=== PATIENT | female | born 1955 | race African-American/Black ===

== ENCOUNTER 2023-05-10 11:49 | Inpatient (IN) | payer MEDICARE, MEDICAID ==
[2023-05-10] MEDS ORDERED: SODIUM CHLORIDE 0.9% 1000ML 1,000 ML IV ONE (12:30)
[2023-05-10 13:10] LABS: BASOPHILS % 0.2 % (0.0-1.0); EOSINOPHILS % 0.4 % (0.0-6.0); HEMATOCRIT 26.6 % (34.2-44.1); HEMOGLOBIN 8.5 g/dL (12.0-16.0); LYMPHOCYTES # (AUTO) 1.8 (1.0-3.2); LYMPHOCYTES % 21.8 % (18.0-39.1); MEAN CORPUSCULAR HEMOGLOBIN 28.3 pg (28-32); MEAN CORPUSCULAR VOLUME 88.7 fL (81-99); MONOCYTES # (AUTO) 0.5 (0.2-0.8); MONOCYTES % 5.6 % (4.4-11.3); NEUTROPHILS % 71.3 % (38.7-80.0); PLATELET COUNT 312 x10e3/uL (140-360); RED CELL DISTRIBUTION WIDTH 16.2 % (11.7-14.4); WHITE BLOOD COUNT 8.43 x10e3/uL (4.8-10.8)
[2023-05-10 13:14] LABS: CLARITY,URINE CLOUDY (CLEAR); COLOR,URINE YELLOW (YELLOW); LEUKOCYTE ESTERASE ,URINE LARGE (NEGATIVE); NITRITE,URINE NEGATIVE (NEGATIVE); PH,URINE 8.5 (5 - 7); PROTEIN,URINE DIPSTICK 2+ (NEGATIVE)
[2023-05-10 13:15] LABS: BILIRUBIN,URINE NEGATIVE (NEGATIVE); GLUCOSE, URINE 1+ (NEGATIVE); KETONES,URINE NEGATIVE (NEGATIVE); URINE UROBILINOGEN 1 mg/dL (0.2 - 1)
[2023-05-10 13:29] LABS: BACTERIA,URINE MODERATE /HPF; RBC,URINE >50 /HPF (0-5); WBC,URINE (MAN) >50 /HPF (0-5)
[2023-05-10 13:30] LABS: YEAST,URINE MANY
[2023-05-10 13:35] LABS: ALBUMIN 1.2 g/dL (3.5-5.0); ALBUMIN/GLOBULIN RATIO 0.2 (0.8-2.0); ANION GAP 12.5 mmol/L (8-16); BILIRUBIN,TOTAL 0.4 mg/dL (0.2-1.2); CALCIUM 7.2 mg/dL (8.4-10.2); CREATININE, SERUM 0.64 mg/dL (0.57-1.11); POTASSIUM 4.5 mmol/L (3.5-5.1); TOTAL PROTEIN 6.1 g/dL (6.5-8.1)
[2023-05-10] MEDS ORDERED: ONDANSETRON HCL INJ 2MG/ML 2ML 2 MG/ML VIAL IV PRN (14:30)
[2023-05-10 15:24] LABS: BILIRUBIN,URINE NEGATIVE (NEGATIVE); CLARITY,URINE CLOUDY (CLEAR); COLOR,URINE YELLOW (YELLOW); GLUCOSE, URINE 1+ (NEGATIVE); KETONES,URINE NEGATIVE (NEGATIVE); LEUKOCYTE ESTERASE ,URINE 1+ (NEGATIVE); NITRITE,URINE NEGATIVE (NEGATIVE); PH,URINE 7 (5 - 7); PROTEIN,URINE DIPSTICK 1+ (NEGATIVE); URINE UROBILINOGEN 1 mg/dL (0.2 - 1)
[2023-05-10 15:41] LABS: BACTERIA,URINE MANY /HPF; EPITHELIAL CELLS,URINE MANY /LPF; RBC,URINE 21-50 /HPF (0-5); WBC,URINE (MAN) 21-50 /HPF (0-5)
[2023-05-10] MEDS: SODIUM CHLORIDE 0.9% 1000ML 1,000 ML IV SCH (15:41)
[2023-05-10 22:31] VITALS: BP 121/87; PULSE 97; RESP 20; TEMP 99.1; O2SAT 98
[2023-05-10 22:34] VITALS: BP 121/87; PULSE 97; RESP 19; TEMP 99.1; O2SAT 100
[2023-05-10 23:58] VITALS: BP 121/87; PULSE 97; RESP 20; TEMP 99.1
[2023-05-11] VITALS (13 sets, daily range): BP systolic 121–151; BP diastolic 68–87; PULSE 90–101; RESP 18–22; TEMP 96–99.7; O2SAT 95–100
[2023-05-11] MEDS: SODIUM CHLORIDE 0.9% 1000ML 1,000 ML IV SCH ×2 (00:44→06:17)
[2023-05-11 02:20] LABS: % IRON SATURATION 15 % (15-50); IRON 22 ug/dL (50-170); TOTAL IRON BINDING CAPACITY 144 ug/dL (261-478); TRANSFERRIN 103 mg/dL (180-382)
[2023-05-11 03:09] LABS: FOLATE 15.7 ng/mL (7.0-15.4)
[2023-05-11] MEDS ORDERED: BENZONATATE 100 MG CAP PO PRN (07:00)
[2023-05-11] MEDS ORDERED: METOPROLOL TARTRATE INJ 1 MG/ML VIAL IV PRN (07:00)
[2023-05-11] MEDS ORDERED: ALBUTEROL/IPRATROPIUM 3 ML NEB NEB PRN (07:00)
[2023-05-11] MEDS ORDERED: ACETAMINOPHEN325 M1 PEG (07:20)
[2023-05-11] MEDS ORDERED: DONEPEZIL HCL10 MG PEG (07:21)
[2023-05-11] MEDS ORDERED: ASCORBIC ACID500 M2 PO (07:21)
[2023-05-11] MEDS ORDERED: FEROSUL325 MG PEG (07:23)
[2023-05-11] MEDS ORDERED: IPRAT-ALBUT 0.5-3 ML (07:23)
[2023-05-11] MEDS ORDERED: FOLIC ACID0.4 MG PO (07:24)
[2023-05-11] MEDS ORDERED: LACTULOSE20 GM/30 M PO (07:27)
[2023-05-11] MEDS ORDERED: LACTULOSE20 GM/30 M PEG (07:27)
[2023-05-11] MEDS ORDERED: NAMENDA10 MG PEG (07:29)
[2023-05-11] MEDS ORDERED: ZINC50 M3 (07:32)
[2023-05-11] MEDS ORDERED: METOPROLOL TART25 MG PEG (07:32)
[2023-05-11] MEDS ORDERED: ZITHROMAX250 MG PEG (07:33)
[2023-05-11] MEDS: FERROUS SULFATE 325 MG TAB PO SCH ×2 (08:00→15:18)
[2023-05-11] MEDS ORDERED: FLUCONAZOLE 100 MG/NS 50 ML 50 ML IV ONE (08:15)
[2023-05-11 08:38] LABS: BASOPHILS # (AUTO) 0.1 (0.0-0.1); BASOPHILS % 0.5 % (0.0-1.0); EOSINOPHILS # (AUTO) 0.1 (0.0-0.4); EOSINOPHILS % 0.5 % (0.0-6.0); HEMATOCRIT 28.6 % (34.2-44.1); HEMOGLOBIN 8.9 g/dL (12.0-16.0); MEAN CORPUSCULAR HEMOGLOBIN 28.2 pg (28-32); MEAN CORPUSCULAR HGB CONC 31.1 g/dL (31-35); MEAN CORPUSCULAR VOLUME 90.5 fL (81-99); MONOCYTES # (AUTO) 0.5 (0.2-0.8); NEUTROPHILS # (AUTO) 7.5 (2.1-6.9); NEUTROPHILS % 73.2 % (38.7-80.0); PLATELET COUNT 261 x10e3/uL (140-360); RED BLOOD COUNT 3.16 x10e6/uL (3.6-5.1); RED CELL DISTRIBUTION WIDTH 16.3 % (11.7-14.4); WHITE BLOOD COUNT 10.17 x10e3/uL (4.8-10.8)
[2023-05-11 09:17] LABS: ALBUMIN 1.3 g/dL (3.5-5.0); ALBUMIN/GLOBULIN RATIO 0.3 (0.8-2.0); ANION GAP 12.8 mmol/L (8-16); BILIRUBIN,TOTAL 0.6 mg/dL (0.2-1.2); CALCIUM 7.5 mg/dL (8.4-10.2); CREATININE, SERUM 0.6 mg/dL (0.57-1.11); POTASSIUM 3.8 mmol/L (3.5-5.1); TOTAL PROTEIN 6.5 g/dL (6.5-8.1)
[2023-05-11] MEDS: DEXTROSE 5%/0.45% SOD CHL 1,000 ML IV SCH ×2 (09:19→21:00)
[2023-05-11] MEDS ORDERED: ASCORBIC ACID500 M4 PEG (09:44)
[2023-05-11] MEDS ORDERED: zinc sulfate PEG (09:44)
[2023-05-11] MEDS: FAMOTIDINE 20 MG/2 ML VIAL IV SCH ×2 (11:56→17:17)
[2023-05-11] MEDS: ENOXAPARIN SOD INJ 40 MG/0.4 ML SYR SC SCH (17:17)
[2023-05-12 06:16] LABS: BASOPHILS # (AUTO) 0.1 (0.0-0.1); BASOPHILS % 0.7 % (0.0-1.0); EOSINOPHILS # (AUTO) 0.1 (0.0-0.4); EOSINOPHILS % 1.1 % (0.0-6.0); HEMOGLOBIN 8.1 g/dL (12.0-16.0); LYMPHOCYTES # (AUTO) 1.6 (1.0-3.2); LYMPHOCYTES % 19.7 % (18.0-39.1); MEAN CORPUSCULAR HEMOGLOBIN 28.2 pg (28-32); MEAN CORPUSCULAR HGB CONC 31.2 g/dL (31-35); MEAN CORPUSCULAR VOLUME 90.6 fL (81-99); MONOCYTES # (AUTO) 0.7 (0.2-0.8); MONOCYTES % 8.2 % (4.4-11.3); NEUTROPHILS # (AUTO) 5.6 (2.1-6.9); NEUTROPHILS % 69.6 % (38.7-80.0); PLATELET COUNT 306 x10e3/uL (140-360); RED BLOOD COUNT 2.87 x10e6/uL (3.6-5.1); RED CELL DISTRIBUTION WIDTH 15.9 % (11.7-14.4); WHITE BLOOD COUNT 8.07 x10e3/uL (4.8-10.8)
[2023-05-12 06:30] LABS: ANION GAP 10.3 mmol/L (8-16); CALCIUM 7.5 mg/dL (8.4-10.2); CREATININE, SERUM 0.64 mg/dL (0.57-1.11)
[2023-05-12 06:34] LABS: POTASSIUM 3.3 mmol/L (3.5-5.1)
[2023-05-12 06:38] VITALS: PULSE 82; RESP 16; O2SAT 97
[2023-05-12] MEDS: FERROUS SULFATE 325 MG TAB PO SCH ×2 (07:20→17:00)
[2023-05-12 08:00] VITALS: BP 139/80; PULSE 82; RESP 16; TEMP 98.5; O2SAT 97
[2023-05-12 08:29] VITALS: BP 150/82; PULSE 90; RESP 16; TEMP 100.3; O2SAT 93
[2023-05-12] MEDS ORDERED: ACETAMINOPHEN 1000 MG/100 ML IV ONE (10:00)
[2023-05-12] MEDS: FLUCONAZOLE 100 MG/NS 50 ML 50 ML IV SCH (10:24)
[2023-05-12] MEDS: FAMOTIDINE 20 MG/2 ML VIAL IV SCH ×2 (10:25→17:18)
[2023-05-12] MEDS: IRON SUCROSE 100 MG in SODIUM CHLORIDE 0.9% 100 ML IV SCH (10:30)
[2023-05-12] MEDS: DEXTROSE 5%/0.45% SOD CHL 1,000 ML IV SCH (10:30)
[2023-05-12 13:04] LABS: INFLUENZAE A&B ANTIGEN (RAPID) NEGATIVE (NEGATIVE); RESPIRATORY SYNC. VIRUS NEGATIVE (NEGATIVE)
[2023-05-12] MEDS: Vancomycin IV 1 GM in SODIUM CHLORIDE 0.9% 250ML 250 ML IV SCH ×2 (13:04→22:55)
[2023-05-12] MEDS: METRONIDAZOLE 500MG/NS 100ML 100 ML IV SCH ×2 (13:04→21:42)
[2023-05-12] MEDS ORDERED: IOPAMIDOL 370 MG/ML 100 ML INFUS..BTL INJ ONE (14:13)
[2023-05-12 14:19] VITALS: BP 145/57; PULSE 93; RESP 16; TEMP 99.5; O2SAT 96
[2023-05-12] MEDS: ENOXAPARIN SOD INJ 40 MG/0.4 ML SYR SC SCH (17:21)
[2023-05-12 20:05] VITALS: PULSE 81; RESP 18; O2SAT 99
[2023-05-12 20:41] VITALS: BP 153/81; PULSE 83; RESP 16; TEMP 98.6; O2SAT 99
[2023-05-13] VITALS (8 sets, daily range): BP systolic 140–169; BP diastolic 73–80; PULSE 82–95; RESP 16–19; TEMP 98–99.9; O2SAT 92–99
[2023-05-13] MEDS: DEXTROSE 5%/0.45% SOD CHL 1,000 ML IV SCH (05:04)
[2023-05-13] MEDS: METRONIDAZOLE 500MG/NS 100ML 100 ML IV SCH ×2 (05:04→17:24)
[2023-05-13 05:54] LABS: HEMATOCRIT 29.8 % (34.2-44.1); HEMOGLOBIN 9.5 g/dL (12.0-16.0); MEAN CORPUSCULAR HGB CONC 31.9 g/dL (31-35); MEAN CORPUSCULAR VOLUME 87.9 fL (81-99); PLATELET COUNT 219 x10e3/uL (140-360); RED BLOOD COUNT 3.39 x10e6/uL (3.6-5.1); RED CELL DISTRIBUTION WIDTH 16.4 % (11.7-14.4)
[2023-05-13 06:17] LABS: ALBUMIN 1.3 g/dL (3.5-5.0); ALBUMIN/GLOBULIN RATIO 0.2 (0.8-2.0); ANION GAP 12.3 mmol/L (8-16); BILIRUBIN,TOTAL 0.5 mg/dL (0.2-1.2); CALCIUM 7.4 mg/dL (8.4-10.2); CREATININE, SERUM 0.66 mg/dL (0.57-1.11); TOTAL PROTEIN 6.9 g/dL (6.5-8.1)
[2023-05-13 06:20] LABS: POTASSIUM 3.3 mmol/L (3.5-5.1)
[2023-05-13] MEDS: FERROUS SULFATE 325 MG TAB PO SCH ×2 (07:38→17:00)
[2023-05-13] MEDS: FAMOTIDINE 20 MG/2 ML VIAL IV SCH ×2 (08:01→17:21)
[2023-05-13 11:05] LABS: BAND NEUTROPHILS % (MANUAL) 1 %; LYMPHOCYTES % (MANUAL) 14 % (19-48); MONOCYTES % (MANUAL) 9 % (3.4-9.0); MYELOCYTES % (MANUAL) 1 % (0-0); NEUTROPHILS % (MANUAL) 69 % (40-74); PLATELET ESTIMATE ADEQUATE; REACTIVE LYMPHOCYTES 6
[2023-05-13 11:06] LABS: PLATELET MORPHOLOGY COMMENT NORMAL; RBC MORPHOLOGY COMMENT NORMAL
[2023-05-13] MEDS: FLUCONAZOLE 100 MG/NS 50 ML 50 ML IV SCH (11:16)
[2023-05-13] MEDS: IRON SUCROSE 100 MG in SODIUM CHLORIDE 0.9% 100 ML IV SCH (11:40)
[2023-05-13] MEDS: Vancomycin IV 1 GM in SODIUM CHLORIDE 0.9% 250ML 250 ML IV SCH (11:57)
[2023-05-13] MEDS ORDERED: PROPOFOL IV EMULSION 10 MG/ML 50 ML VIAL IV ONE (12:00)
[2023-05-13] MEDS ORDERED: LIDOCAINE HCL 2% LOCAL INJ 5 ML SDV VIAL INJ ONE (12:00)
[2023-05-13] MEDS ORDERED: FENTANYL CITRATE/PF 100MCG/2 ML INJ ONE (12:55)
[2023-05-13] MEDS: ENOXAPARIN SOD INJ 40 MG/0.4 ML SYR SC SCH (17:21)
[2023-05-14] VITALS (11 sets, daily range): BP systolic 113–160; BP diastolic 56–91; PULSE 77–91; RESP 16–18; TEMP 97.4–99; O2SAT 95–100
[2023-05-14] MEDS: METRONIDAZOLE 500MG/NS 100ML 100 ML IV SCH ×3 (02:56→17:26)
[2023-05-14] MEDS: DEXTROSE 5%/0.45% SOD CHL 1,000 ML IV SCH ×3 (02:57→15:00)
[2023-05-14] MEDS: FERROUS SULFATE 325 MG TAB PO SCH ×2 (08:00→17:26)
[2023-05-14] MEDS ORDERED: SODIUM CHLORIDE 0.9% 0 ML ONE (08:31)
[2023-05-14] MEDS: IRON SUCROSE 100 MG in SODIUM CHLORIDE 0.9% 100 ML IV SCH (08:43)
[2023-05-14] MEDS: FAMOTIDINE 20 MG/2 ML VIAL IV SCH ×2 (08:47→17:26)
[2023-05-14] MEDS ORDERED: Vancomycin IV 1 GM VIAL ONE (10:36)
[2023-05-14] MEDS: FLUCONAZOLE 100 MG/NS 50 ML 50 ML IV SCH (11:14)
[2023-05-14] MEDS: Vancomycin IV 1 GM in SODIUM CHLORIDE 0.9% 250ML 250 ML IV SCH ×3 (14:01)
[2023-05-14] MEDS: ENOXAPARIN SOD INJ 40 MG/0.4 ML SYR SC SCH (17:26)
[2023-05-15] MEDS: Vancomycin IV 1 GM in SODIUM CHLORIDE 0.9% 250ML 250 ML IV SCH ×2 (00:08→11:46)
[2023-05-15] MEDS: METRONIDAZOLE 500MG/NS 100ML 100 ML IV SCH ×3 (02:04→17:41)
[2023-05-15 04:00] VITALS: BP 170/64; PULSE 86; RESP 18; TEMP 98.4; O2SAT 100
[2023-05-15] MEDS: DEXTROSE 5%/0.45% SOD CHL 1,000 ML IV SCH (06:32)
[2023-05-15 06:56] VITALS: PULSE 80; RESP 18; O2SAT 94
[2023-05-15 08:07] VITALS: BP 158/62; PULSE 90; RESP 16; TEMP 99.3; O2SAT 100
[2023-05-15 08:13] VITALS: BP 158/62; PULSE 90; RESP 16; TEMP 99.3; O2SAT 100
[2023-05-15] MEDS: IRON SUCROSE 100 MG in SODIUM CHLORIDE 0.9% 100 ML IV SCH (09:18)
[2023-05-15] MEDS: FAMOTIDINE 20 MG/2 ML VIAL IV SCH ×2 (09:18→17:42)
[2023-05-15] MEDS: FERROUS SULFATE 325 MG TAB PO SCH ×2 (09:18→17:41)
[2023-05-15] MEDS ORDERED: ONDANSETRON ODT4 MG PO (10:42)
[2023-05-15] MEDS ORDERED: BENZONATATE100 MG PO (10:42)
[2023-05-15] MEDS ORDERED: DOXYCYCLINE HY100 MG PO ×2 (10:42→10:45)
[2023-05-15] MEDS ORDERED: LEVOFLOXACIN250 MG PO (10:45)
[2023-05-15] MEDS ORDERED: FLUCONAZOLE100 MG PO (10:48)
[2023-05-15 11:06] VITALS: BP 153/63; PULSE 93; RESP 19; TEMP 98.9; O2SAT 98
[2023-05-15] MEDS: FLUCONAZOLE 100 MG/NS 50 ML 50 ML IV SCH (11:13)
[2023-05-15 15:53] VITALS: BP 151/69; PULSE 91; RESP 19; TEMP 97.8; O2SAT 96
[2023-05-15] MEDS: ENOXAPARIN SOD INJ 40 MG/0.4 ML SYR SC SCH (17:41)
== END 2023-05-15 19:50 | DRG 393 ==
LOC: ER 11:56 → ERHOLD 14:28 → MED/SURG2 21:51 → EEVIPCON 05-12 09:05 → OBSVTOIN 05-12 09:05
PROVIDERS: ADMIT Internal Medicine; ATTEND Internal Medicine
PROC: 0DH68UZ Insertion of Feeding Device into Stomach, Via Natural or Artificial Opening Endoscopic (ICD-10-PCS; principal; 2023-05-13 15:00)
PROC: 3E0G76Z Introduction of Nutritional Substance into Upper GI, Via Natural or Artificial Opening (ICD-10-PCS; 2023-05-14)
DX: K94.23 Gastrostomy malfunction (principal); G93.41 Metabolic encephalopathy; J69.0 Pneumonitis due to inhalation of food and vomit; Z43.1 Encounter for attention to gastrostomy; N39.0 Urinary tract infection, site not specified; B37.49 Other urogenital candidiasis; E44.0 Moderate protein-calorie malnutrition; Z68.1 Body mass index [BMI] 19.9 or less, adult; R13.12 Dysphagia, oropharyngeal phase; F03.90 Unspecified dementia, unspecified severity, without behavioral disturbance, psychotic disturbance, mood disturbance, and anxiety; K29.50 Unspecified chronic gastritis without bleeding; E87.6 Hypokalemia; K20.90 Esophagitis, unspecified without bleeding; B96.5 Pseudomonas (aeruginosa) (mallei) (pseudomallei) as the cause of diseases classified elsewhere; B95.2 Enterococcus as the cause of diseases classified elsewhere; L89.152 Pressure ulcer of sacral region, stage 2; F09 Unspecified mental disorder due to known physiological condition; D50.9 Iron deficiency anemia, unspecified; M24.561 Contracture, right knee; Z74.01 Bed confinement status; Z11.52 Encounter for screening for COVID-19; Z79.899 Other long term (current) drug therapy; Z88.5 Allergy status to narcotic agent; Z88.0 Allergy status to penicillin
CPT/HCPCS: 36415; 43246; 51700; 71045; 71260; 80048; 80053; 80202; 81001; 82607; 82746; 82948; 83540; 84466; 85007; 85025; 85027; 85045; 87040; 87086; 87186; 87299; 87400; 87420; 93306; 94799; 99252; 99284; G0378; J0692; J1450; J1650; J1756; J2001; J7030; J7050; Q9967; U0002